=== PATIENT | male | born 1955 | race Caucasian/White ===

== ENCOUNTER 2017-10-04 17:14 | Emergency (ER) | payer OTHER ==
--- NOTE | 2017-10-04 18:12 | ED ---
Laceration/Wound HPI - HPI Summary HPI Summary: C/o lac to left ant monge from chainsaw today. Denies loss of sensation or function in left LE, states he drove stick shift here to ED. Denies anticoag. Bleeding controlled. Ambulatory. Med hx = CLL, with no active sx. tetanus status unknown - History of Current Complaint Stated Complaint: LT LEG LAC Time Seen by Provider: 10/04/17 18:01 Hx Obtained From: Patient Mechanism of Injury: Sharp/Blunt Trauma Onset Severity: Moderate Current Severity: Moderate Pain Intensity: 9 Pain Scale Used: 0-10 Numeric Associated Signs & Symptoms: Pain - Allergy/Home Medications Allergies/Adverse Reactions: Allergies Allergy/AdvReac Type Severity Reaction Status Date / Time amlodipine Allergy Dizziness Verified 10/04/17 18:20 PMH/Surg Hx/FS Hx/Imm Hx Cardiovascular History: Reports: Hx Hypertension Denies: Hx Pacemaker/ICD Musculoskeletal History: Denies: Hx Rheumatoid Arthritis, Hx Osteoporosis Sensory History: Denies: Hx Hearing Aid Psychiatric History: Denies: Hx Panic Disorder - Cancer History Cancer Type, Location and Year: 2007 - Surgical History Surgery Procedure, Year, and Place: RT INDEX FINGER TIP AMPUTATED,LT MIDDLE FINGER TIP AMPUTATED, LT KNEE ACUTE LACERATION AND INCISION AND DRAINAGE AT [facility] [place], CARPAL TUNNEL RELEASE 07/20 AT [facility] [place] Infectious Disease History: No Infectious Disease History: Reports: Hx Shingles - Not currently Denies: Traveled Outside the [place] in Last 30 Days - Social History Substance Use Type: Reports: None Review of Systems Constitutional: Negative Eyes: Negative ENT: Negative Cardiovascular: Negative Respiratory: Negative Gastrointestinal: Negative Genitourinary: Negative Musculoskeletal: Negative Positive: Other Neurological: Negative Psychological: Normal All Other Systems Reviewed And Are Negative: Yes Physical Exam - Summary Physical Exam Summary: PMS intact distally on left LE. Flexion and extension left foot and ankle strength nml. Triage Information Reviewed: Yes Vital Signs On Initial Exam: Initial Vitals Temp Pulse Resp BP Pulse Ox 98.0 F 103 16 151/87 97 10/04/17 17:32 10/04/17 17:32 10/04/17 17:32 10/04/17 17:32 10/04/17 17:32 Vital Signs Reviewed: Yes Appearance: Positive: Well-Appearing Skin: Positive: Warm Head/Face: Positive: Normal Head/Face Inspection Eyes: Positive: Normal Neck: Positive: Supple Respiratory/Lung Sounds: Positive: Clear to Auscultation Cardiovascular: Positive: Normal Abdomen Description: Positive: Nontender Musculoskeletal: Positive: Normal Neurological: Positive: Normal Psychiatric: Positive: Normal AVPU Assessment: Alert - Jacob Coma Scale Best Eye Response: 4 - Spontaneous Best Motor Response: 6 - Obeys Commands Best Verbal Response: 5 - Oriented Coma Scale Total: 15 Procedures - Laceration/Wound Repair 1 Location: lower extremity Description: Irregular Anesthesia: Local, 1.0% Length, Depth and Shape: 9cm x2cm Betadine Prep?: Yes Irrigated w/ Saline (ccs): 100 - saline + betadine Laceration/Wound Explored: clean, no foreign body removed Closure: Single Layer Debridement: minimal Suture Type: Prolene Number of Sutures: 18 - 3.0 Layer Closure?: No Diagnostics - Vital Signs Vital Signs Temp Pulse Resp BP Pulse Ox 10/04/17 17:32 98.0 F 103 16 151/87 97 - Laboratory Result Diagrams: 10/04/17 19:41 Lab Statement: Any lab studies that have been ordered have been reviewed, and results considered in the medical decision making process. - Radiology tib/fib Xray Interpretation: Positive (See Comments) - mild comminuted tibial fracture, Radiology Interpretation Completed By: Radiologist - CT left LE CT Interpretation: Positive (See Comments) - Open Tibial fracture CT Interpretation Completed By: Radiologist Re-Evaluation - Re-Evaluation 1 Re-Evaluation Time: 22:39 Change: Improved Comment: Patient pain control. Laceration Repair Course/Dx - Course Course Of Treatment: Discussed patient with Dr. Georges from with on-call, who after evaluating x-ray and CT stated patient could be sent home with crutches, nonweightbearing, Keflex, pain medication and follow-up in clinic Thursday or Thursday. Patient has been advised of risks of weightbearing and bone infection. - Clinical Impression Provider Diagnoses: Open tibial fracture, Laceration - Physician Notifications Discussed Care Of Patient With: jose luis Hawkins attempted closure and ct for further eval Discharge - Sign-Out/Discharge Documenting (check all that apply): Discharge/Admit/Transfer - Discharge Plan Condition: Stable Disposition: HOME Prescriptions: Cephalexin CAP* [Keflex CAP*] 500 mg PO QID 10 Days #40 cap oxyCODONE/Acetamin 5/325 MG* [Percocet 5/325 TAB*] 1 tab PO Q4H PRN #20 tab MDD 5-8 tabs PRN Reason: Pain Patient Education Materials: Leg Fracture (ED) Referrals: Ryne Quintero MD [Primary Care Provider] - Additional Instructions: Sutures to be removed in 10 days. Wash with warm running water and soap. Do not submerge underwater. Follow-up with orthopedics Dr. Georges for further evaluation on Thursday. Continue the ED for any new or worsening symptoms - Billing Disposition and Condition Condition: STABLE Disposition: HOME
--- NOTE | 2017-10-04 18:47 | RAD ---
Indication: Chainsaw laceration LEFT anterior monge. Comparison: No relevant prior exams available on the [facility] [place] [facility] PACS for comparison. Technique: AP and lateral views LEFT lower leg. Report: Transverse oriented soft tissue and osseous laceration involving the anterior cortex and superficial medullary portion of the mid diaphysis of the tibia extending approximately 1 cm into the bone. Innumerable punctate bone fragments within the soft tissues extending anteriorly. Subcutaneous emphysema. No abnormality of the fibula evident. Normal articular alignment. IMPRESSION: Open soft tissue and osseous laceration/micro comminuted fracture involving the tibia as described.
[2017-10-04] MEDS ORDERED: Morphine VIAL* 10 MG/ML 1 ML VIAL IM ONE (19:08)
[2017-10-04] MEDS ORDERED: Tetan/Diph/Pertus SYR(Tdap)* 0.5 ML SYR(BOOSTRIX) use SYR IM ONE (19:13)
[2017-10-04] MEDS ORDERED: ceFAZolin 2 GM PREMIX (*) 2 GM/50 ML BAG IVPB ONE (19:13)
[2017-10-04 19:59] LABS: ABS Basophils 0.1 10^3/ul (0-0.2); ABS Eosinophils 0.1 10^3/ul (0-0.6); ABS Lymphocytes 3.8 10^3/ul (1.0-4.8); ABS Monocytes 0.7 10^3/ul (0-0.8); ABS Neutrophils 8.9 10^3/ul (1.5-7.7); ABS Nucleated RBC 0 10^3/ul; Eosinophil % 0.4 % (0-6); Hematocrit 43 % (42-52); Hemoglobin 14.7 g/dl (14.0-18.0); Lymphocyte % 27.9 % (25-47); Mean Corpuscular HGB Conc 34 g/dl (31-36); Mean Corpuscular Hemoglobin 30 pg (27-31); Mean Corpuscular Volume 89 fL (80-94); Mean Platelet Volume 8.3 um3 (7.4-10.4); Nucleated Red Blood Cells % 0.1; Platelet Count 195 10^3/ul (150-450); Red Blood Count 4.84 10^6/ul (4.0-5.4); Red Cell Distribution Width 13 % (10.5-15); White Blood Count 13.6 10^3/ul (3.5-10.8)
[2017-10-04] MEDS ORDERED: Morphine VIAL* 4 MG/ML VIAL (1 ml vial) IV ONE ×2 (20:07→20:17)
--- NOTE | 2017-10-04 21:46 | RAD ---
Indication: Traumatic injury to anterior mid LEFT lower leg with chainsaw. Comparison: Radiographs of the same date. Technique: Noncontrast CT LEFT lower leg. Multiplanar reformation. Report: Soft tissue and osseous laceration at the anteromedial aspect of the mid lower leg involving the mid diaphysis of the tibia. Osseous involvement is limited to the superficial cortex extending only up to 4 mm deep to the periosteum. Overlying infiltrative edema, scattered punctate bone fragments, and subcutaneous emphysema. Limited soft tissue injury involving the tibialis anterior muscle without gross retracted muscle fibers or loculated muscular compartment hematoma. IMPRESSION: Open traumatic soft tissue laceration and osseous fracture involving the superficial anteromedial cortex of the mid diaphysis of the tibia as described.
[2017-10-04] MEDS ORDERED: oxyCODONE/Acetamin 5/325 MG* TAB PO ONE (22:46)
[2017-10-04 23:43] VITALS: BP 137/74
== END 2017-10-04 23:43 | disposition home or self-care (01) ==
LOC: ED 17:14
DX: S81.812A Laceration without foreign body, left lower leg, initial encounter (principal); C91.10 Chronic lymphocytic leukemia of B-cell type not having achieved remission; W29.3XXA Contact with powered garden and outdoor hand tools and machinery, initial encounter; Y92.9 Unspecified place or not applicable; I10 Essential (primary) hypertension
CPT/HCPCS: 12004; 36415; 85025; 90471; 90715; 96372; 96374; 96375; 99284; A9270-GY; J0690; J2270

== ENCOUNTER 2018-05-21 16:55 | Emergency (ER) | payer OTHER ==
[2018-05-21] MEDS ORDERED: Tetan/Diph/Pertus SYR(Tdap)* 0.5 ML SYR(BOOSTRIX) use SYR IM ONE (17:17)
--- NOTE | 2018-05-21 17:56 | ED ---
Skin Complaint - HPI Summary HPI Summary: Pt is a 62 y/o male who presents to the ED c/o laceration. He was working with a grinding wheel and it exploded. A piece hit him in the right side of his abdomen, and he now has a puncture wound. He was wearing 2 layers of shirts. He reports 3/10 pain to the RLQ. Pts last tetanus in September 2017. - History of Current Complaint Chief Complaint: EDLacSutureRecheck Time Seen by Provider: 05/21/18 17:25 Stated Complaint: ABD LAC/INJURY Hx Obtained From: Patient Onset/Duration: Started Hours Ago - [employer]OR, Still Present Timing: Constant Current Severity: Moderate Pain Intensity: 3 Pain Scale Used: 0-10 Numeric Skin Location: Abdomen - RLQ Character: Pain Alleviating Symptom(s): Nothing Associated Signs & Symptoms: Negative Related History: Trauma - grinding wheel exploded - Allergy/Home Medications Allergies/Adverse Reactions: Allergies Allergy/AdvReac Type Severity Reaction Status Date / Time amlodipine Allergy Dizziness Verified 10/04/17 18:20 PMH/Surg Hx/FS Hx/Imm Hx Cardiovascular History: Reports: Hx Hypercholesterolemia, Hx Hypertension Denies: Hx Pacemaker/ICD Musculoskeletal History: Denies: Hx Rheumatoid Arthritis, Hx Osteoporosis Sensory History: Denies: Hx Hearing Aid Psychiatric History: Denies: Hx Panic Disorder - Cancer History Cancer Type, Location and Year: - 2007 - Surgical History Surgery Procedure, Year, and Place: RT INDEX FINGER TIP AMPUTATED,LT MIDDLE FINGER TIP AMPUTATED, LT KNEE ACUTE LACERATION AND INCISION AND DRAINAGE AT [facility] [place], CARPAL TUNNEL RELEASE 07/20 AT [facility] [place] Infectious Disease History: No Infectious Disease History: Reports: Hx Shingles - Not currently Denies: Traveled Outside the [place] in Last 30 Days - Family History Known Family History: Negative: Other - GI disease - Social History Alcohol Use: None Hx Substance Use: No Substance Use Type: Reports: None Hx Tobacco Use: No Smoking Status (MU): Never Smoked Tobacco Review of Systems Negative: Fever Positive: Other - laceration All Other Systems Reviewed And Are Negative: Yes Physical Exam - Summary Physical Exam Summary: Appearance: Well appearing, no pain distress Skin: warm, dry, reflects adequate perfusion, 1 cm x 1 cm puncture hole to RLQ with abrasion that tails off toward the midline of the abdomen Head/face: normal Eyes: EOMI, VICENTE ENT: mucous membranes moist Neck: supple, non-tender Respiratory: CTA, breath sounds present Cardiovascular: RRR, pulses symmetrical Abdomen: non-tender except for localized tenderness to wound site, soft, no peritoneal sign Bowel Sounds: present Musculoskeletal: normal, strength/ROM intact Neuro: normal, sensory motor intact, A&Ox3 Triage Information Reviewed: Yes Vital Signs On Initial Exam: Initial Vitals Temp Pulse Resp BP Pulse Ox 99.8 F 100 18 139/89 94 05/21/18 17:12 05/21/18 17:12 05/21/18 17:12 05/21/18 17:12 05/21/18 17:12 Vital Signs Reviewed: Yes Procedures - Procedure Summary Procedure Summary: Puncture wound care: The wound was cleaned with chlorhexidine and anesthetized with a total of 5 cc of 0.5% bupivacaine with epinephrine. The wound was then examined to depth with a sterile gloved finger. No definite foreign body was felt. This was also examined previously with bedside ultrasound and no definite foreign body was seen. The wound was then extensively irrigated and packed open with half-inch gauze packing. It was dressed with gauze with AVD pad overlying and held in place with Db wraps. He tolerated this well without complication. A timeout had been performed prior. Diagnostics - Vital Signs Vital Signs Temp Pulse Resp BP Pulse Ox 05/21/18 17:12 99.8 F 100 18 139/89 94 - Laboratory Lab Statement: Any lab studies that have been ordered have been reviewed, and results considered in the medical decision making process. - CT CT A/P Summary of CT Findings: Right lower quadrant subcutaneous contusion and laceration with no. intra-abdominal or pelvic traumatic abnormalities. ED physician reviewed radiology report. Re-Evaluation - Re-Evaluation First Eval Re-Evaluation Time: 18:47 Change: Unchanged Comment: Informed pt of FB found in CT A/P. Course/Dx - Course Course Of Treatment: Nurse's note reviewed. Tetanus is up-to-date. Puncture wound in the abdomen was first numbed and then examined with a sterile gloved finger. No violation of the peritoneum. No definite foreign body felt. A CT scan was performed which appears to show a tiny nonmetallic foreign body. This discussed with surgeon who agrees. The wound was irrigated extensively and packed with half-inch gauze. He was given IV Ancef here and treated for discomfort. A dressing was applied. He will follow-up early in the week with surgery. Of note is that radiology did not acknowledge the tiny foreign body. He estimated to be approximately 1 mm. - Differential Diagnoses - Skin Complaint Differential Diagnoses: Other - Abdominal wall foreign body versus peritoneal violation - Diagnoses Provider Diagnoses: Puncture wound of abdominal wall - Physician Notifications Discussed Care Of Patient With: Last Waterman Time Discussed With Above Provider: 19:02 Instructed by Provider To: Other - Dr. Waterman agrees with leaving the wound open. Will see in office next week. Discharge - Sign-Out/Discharge Documenting (check all that apply): Patient Departure - Discharge - Discharge Plan Condition: Stable Disposition: HOME Prescriptions: Cephalexin CAP* [Keflex CAP*] 500 mg PO QID #40 cap Patient Education Materials: Puncture Wound (ED) Referrals: Last Waterman MD [Medical Doctor] - Ryne Quintero MD [Primary Care Provider] - Additional Instructions: Tylenol, ibuprofen as needed for discomfort. Return with drainage from the wound, bleeding, uncontrolled pain, worse, new symptoms or other concerns. Call first thing on Thursday to schedule prompt follow-up with the surgeon. Packing can be discontinued Thursday at home by the urgent care , surgeon or at home. - Billing Disposition and Condition Condition: STABLE Disposition: Home - Attestation Statements Document Initiated by Remberto: Yes Documenting Scribe: Abbie Llanos Provider For Whom Remberto is Documenting (Include Credential): Melvin Phan MD Scribe Attestation: Abbie Jorge scribed for Melvin Phan MD on 05/21/18 at 1927. Scribe Documentation Reviewed: Yes Provider Attestation: The documentation as recorded by the Abbie canela accurately reflects the service I personally performed and the decisions made by , Melvin Phan MD Status of Scribe Document: Viewed
[2018-05-21] MEDS ORDERED: ceFAZolin 1 GM ADVAN(*) 1 GM in NS 0.9% 50 ML* 50 ML IVPB ONE (18:18)
[2018-05-21 19:11] VITALS: BP 143/85
[2018-05-21] MEDS: oxyCODONE/Acetamin 5/325 MG* TAB PO ONE ×2 (19:47→19:48)
== END 2018-05-21 20:03 | disposition home or self-care (01) ==
LOC: ED 16:55
DX: S31.133A Puncture wound of abdominal wall without foreign body, right lower quadrant without penetration into peritoneal cavity, initial encounter (principal); W31.89XA Contact with other specified machinery, initial encounter; Y92.9 Unspecified place or not applicable; Z23 Encounter for immunization; Z89.021 Acquired absence of right finger(s); Z89.022 Acquired absence of left finger(s); Z88.8 Allergy status to other drugs, medicaments and biological substances
CPT/HCPCS: 74176; 90471; 96365; 99282; A9270-GY; J0690

== ENCOUNTER 2018-05-28 13:25 | Day surgery (SDC) | payer OTHER ==
[2018-05-28] MEDS ORDERED: fentaNYL* 50 MCG/ML 2 ML VIAL (100 MCG VIAL) ONE (15:39)
[2018-05-28] MEDS ORDERED: Midazolam* 1 MG/ML 2 ML VIAL (2 MG) ONE (15:40)
[2018-05-28] MEDS ORDERED: Propofol* 10 MG/ML 20 ML BTL ONE ×2 (16:28→16:30)
[2018-05-28] MEDS ORDERED: Lidocaine 1% MPF wEPI 200,000* 30 ML SDV ONE (16:28)
--- NOTE | 2018-05-28 16:59 | BRIEFOPN ---
Brief Operative Note - Surgery Procedures: Procedures Pre-OP Diagnoses: traumatic laceration with retained foreign body Post-op Diagnosis: same Procedure: exploration of abdominal wound , excisional debridement, removal of foreign body, and washout Surgeon: Ira Asst: none Anethesia: local DESIREE Brody EBL: minimal IVF: crystalloid Specimen: foreign body Drains: wound packed open
[2018-05-28] MEDS ORDERED: Ondansetron INJ* 2 MG/ML VIAL IV PRN (17:11)
[2018-05-28] MEDS ORDERED: Naloxone* 0.4 MG/ML 1 ML VIAL IV PRN (17:11)
[2018-05-28] MEDS ORDERED: fentaNYL* 50 MCG/ML 2 ML VIAL (100 MCG VIAL) IV PRN (17:11)
[2018-05-28 17:59] VITALS: BP 143/78
--- NOTE | 2018-05-29 08:15 | OP ---
CC: Dr. Ryne Quintero; [facility] OPERATIVE REPORT: DATE OF OPERATION: 05/28/18 DATE OF : 59 SURGEON: Alexandre Roth MD. BACTERIOLOGIST SOIL: None. ANESTHESIOLOGIST: Dr. Brody. ANESTHESIA: Local MAC anesthesia. PRE-OP DIAGNOSIS: Traumatic laceration with retained foreign body to the abdominal wall. POST-OP DIAGNOSIS: Traumatic laceration with retained foreign body to the abdominal wall. OPERATIVE PROCEDURE: Exploration of abdominal wound, excisional debridement, removal of foreign body , and washout. BLOOD LOSS: Minimal. FLUIDS: Minimal crystalloid fluid given. SPECIMEN: Foreign body. Wound packed open. INDICATIONS: Mr. Gottlieb is a 62-year-old gentleman who suffered a traumatic [facility] Workup included a CAT scan that did show a small retained foreign body. The patient was seen in my office on 2 visits and showed minimal improvement with significant pain an d soft tissue injury. Recommended a trip to the operating room for exploration of the wound. DESCRIPTION OF PROCEDURE: The patient was identified in the preoperative area. Consent was signed. He was marked, brought to the operating room, and placed on the operating table in supine position. Gentle sedation was given. The patient's abdominal hair was clipped and the area was prepped with Be tadine. A time-out was performed A 1 x 1 cm opening at the right lower quadrant was identified. This tracked down to the abdominal mu sculature and tunneled throughout all 360 degrees. We injected lidocaine along the periwound skin es pecially the area medially that showed evidence of second-degree burn. We then debrided this sharply to create a larger wound that was approximately 2 x 5 x 3 cm deep. This was less tunneling. This d id go down to the subcutaneous tissue, which was indurated. This was debrided sharply and we could n ow see the base of the wound. There was significant amount of hematoma that was picked off as well a s a small 1 mm piece of debris that appeared to be foreign body. This was passed off as specimen. Next, Pulsavac was performed after the excisional debridement of skin, subcutaneous tissue, and subcu taneous fat debridement. The wound was irrigated with 2 L of warm saline in Pulsavac fashion. Hemos tasis was then achieved and the wound was packed open with with gauze. The patient tolerated the pro cedure well and was transferred to PACU in stable condition. [id number]/[facility] #: [id number]
== END 2018-05-28 18:01 | disposition home or self-care (01) ==
LOC: OR 13:25
PROVIDERS: ATTEND Surgery
DX: S31.142A Puncture wound of abdominal wall with foreign body, epigastric region without penetration into peritoneal cavity, initial encounter (principal); I10 Essential (primary) hypertension; E78.5 Hyperlipidemia, unspecified; G47.33 Obstructive sleep apnea (adult) (pediatric); W31.1XXA Contact with metalworking machines, initial encounter; Y92.9 Unspecified place or not applicable
CPT/HCPCS: 88300; J2001; J2250; J2704; J3010